=== PATIENT | female | born 1965 | race Two or more races ===

== ENCOUNTER 2025-03-01 05:40 | Day surgery (SDC) | payer MEDICAID, SELFPAY ==
--- NOTE | 2025-02-28 09:57 | EKG_ITS ---
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
[2025-02-28 10:03] VITALS: BMI 35.1
[2025-02-28 10:54] LABS: Basophils # (Auto) 0.1 Thou/mm3 (0.0-0.2); Basophils % (Auto) 1 % (0-2.5); Eosinophils # (Auto) 0.3 Thou/mm3 (0.0-0.5); Eosinophils % (Auto) 5 % (0-10); Hematocrit 39.2 % (36.0-46.0); Hemoglobin 13.4 g/dL (12.0-16.0); Immature Granulocytes Auto 0.01 Thou/mm3 (0.00-0.00); Lymphocytes # (Auto) 2.6 Thou/mm3 (1.0-4.8); Lymphocytes % (Auto) 46 % (10-50); Mean Corpuscular HGB Conc 34.2 g/dl (31.0-37.0); Mean Corpuscular Hemoglobin 28.2 pg (25.0-35.0); Mean Corpuscular Volume 82 fL (80-100); Monocytes # (Auto) 0.6 Thou/mm3 (0.0-0.8); Monocytes % (Auto) 11 % (0-12); Neutrophils # (Auto) 2.0 Thou/mm3 (1.8-7.7); Neutrophils % (Auto) 37 % (37-80); Nucleated Red Blood Cell # 0.00 Thou/mm3 (0.00-0.00); Nucleated Red Blood Cell % 0 /100 WBC (0); Platelet Count 171 Thou/mm3 (140-440); RDW Standard Deviation 38.0 fL (36.4-46.3); Red Blood Count 4.76 Miln/mm3 (4.00-5.20); White Blood Count 5.5 Thou/mm3 (3.6-11.0)
[2025-02-28 10:59] LABS: Alanine Aminotransferase 77 U/L (10-49); Albumin, Serum 4.2 gm/dL (3.4-4.8); Albumin/Globulin Ratio 1.4 (1.2-2.2); Alkaline Phosphatase 86 U/L (46-116); Anion Gap 8 (7-16); Aspartate Amino Transferase 53 U/L (0-34); BUN/Creatinine Ratio 11 Ratio (12-20); Bilirubin,Total 0.6 mg/dL (0.3-1.2); Blood Urea Nitrogen 8 mg/dL (9-23); Calcium 9.2 mg/dL (8.3-10.6); Calcium (Corrected) 9.2 mg/dL (8.5-10.1); Carbon Dioxide 29.0 mMol/L (20.0-31.0); Chloride 107 mMol/L (98-107); Creatinine (Component) 0.7 mg/dL (0.6-1.3); Estimated Creatinine Clearance 83.1 mL/min (>60); Globulin 2.9 gm/dL (2.3-3.5); Glucose 92 mg/dL (74-106); Osmolality,Calculated 285 (275-295); Potassium 4.0 mMol/L (3.4-5.1); Sodium 144 mMol/L (136-145); Total Protein 7.1 gm/dL (5.7-8.2); eGFR > 60 See Note
[2025-02-28 11:00] LABS: HCG,Qualitative Serum Negative
[2025-02-28 11:39] LABS: Hepatitis A Antibody IgM Non Reactive (Non React); Hepatitis B Core Antibody IgM Non Reactive (Non React); Hepatitis B Surface Antigen Non Reactive (Non React); Hepatitis C Antibody Non Reactive (Non React)
[2025-02-28 12:40] LABS: HIV (1&2) Antibody Rapid Non-Reactive
[2025-03-01] VITALS (10 sets, daily range): BP systolic 123–143; BP diastolic 77–100; PULSE 61–101; RESP 14–19; TEMP 36.2–36.6; O2SAT 89–96; BMI 34.0
--- NOTE | 2025-03-01 08:32 | SUR.PHASEI ---
0832: Pt. wakes to name then drifts back to sleep, vitals stable, breathing unlabored, no complaint of pain or nausea, peripad in place CDI, no active bleed noted, report recieved from MD Gasper KAUR.
--- NOTE | 2025-03-01 08:40 | ESOP_ITS ---
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 The potential benefits and risks of the procedure, the likelihood of success, and the problems related to recuperation have been discussed with patient who agrees to proceed. The possible results of nontreatment and significant alternatives to the proposed procedure have also been explained, along with the risks and benefits of the alternatives. Risks and benefits of chosen anesthetic/sedation and possible use of blood/blood products (if appropriate) were discussed.The patient was identified as Renee Miranda and the procedure verified. A time out was held reviewing the patient identifiers, procedure planned and allergies. At this point the procedure was begun. The patient was positioned and prepped in routine fashion in the dorsal lithotomy position using yellowfin stirups. On examination under anesthesia,the uterus was retroverted to a normal size. Bladder was drained by catheter. A weighted speculum was then placed into the patient's posterior vagina. A jonathon was used to expose the anterior lip of the cervix which was then grasped by a single tooth tenaculum.cervical canal had sessile polyp which was removed by multiple rotatory movements by holding it with a stone holding forceps. Hemostasis was seen. After that the cervix was then very easily dilated to a size 6 Hegar dilator. The hysteroscope was then placed under direct visualization. Warm lactated Ringer's was used as a distention medium. The patient's uterus was found to have large endometrial polyp almost occupying the whole endometrial cavity. Pictures were taken. Hysteroscope was removed and we proceeded with the myosure. Normal saline was used as the distension medium. The outflow channel was removed from the myosure camera and the myosure device was advanced into the cavity. Next the polyp was easily resected at its base using the myosure. Next the polyp was reached using the myosure, the cutting blade was approximated to the surface of the polyp, the cutting blade was activated and the resection of the was then completed in multiple rotatory and withdrawal movements with the myosure. Remaining tissue were excised using the myosure device. The uterus appeared clear of any remaining excess tissue and the myosure camera and device were withdrawn from the cavity. There was minimal bleeding noted and tenaculum was removed. Hemostasis was acheived with a ringed forcep on anterior cervix. Estimated blood loss (ml): 5 Surgical staff Operation Date: 03/01/25 07:30 Case Staff Anesthesiologist: Cole Gregory Diagnosis Problem List Completed Was Problem List Reviewed/Reconciled?: Yes
[2025-03-01] MEDS: ALBUTEROL RT 2.5 MG/3 ML NEBU INH (09:33)
--- NOTE | 2025-03-01 09:50 | SUR.PHASEII ---
0950: Pt. AAOx4, vitals stable, breathing unlabored, no complaint of pain or nausea, periapad in place CDI, no active bleed noted, pt. tolerated sips of water well, pt. ambulated to wheelchair with steady gait and no assist, no complications. Gave discharge instructions to the pt. and her ride, both verbalized understanding and had no further questions. Pt. left with all personal belongings. Had to keep pt. longer due to her not being able to keep SPO2 above 92% on RA, after breathing treatment pt. was able to sustain SPO2 at 92%.
== END 2025-03-01 09:50 | disposition home or self-care (01) ==
PROVIDERS: Anesthesiology; PCP Family Medicine; Referring Provider Student in an Organized Health Care Education/Training Program; Visit Provider Student in an Organized Health Care Education/Training Program
PROC: 0UJD8ZZ Inspection of Uterus and Cervix, Via Natural or Artificial Opening Endoscopic (ICD-10-PCS; CPT 58555; principal; 2025-03-01 07:30)
DX: N84.0 Polyp of corpus uteri (principal); N84.1 Polyp of cervix uteri; N95.0 Postmenopausal bleeding; Z01.810 Encounter for preprocedural cardiovascular examination
CPT/HCPCS: 58558; 57500; 36415; 80053; 80074; 84703; 85025; 86703; 86850; 86900; 86901; 93005; A4217; A4649; J0131; J1100; J2250; J2405; J2704; J3010; J3490